=== PATIENT | female | born 1980 | race Caucasian/White ===

== ENCOUNTER 2020-10-31 09:16 | Emergency (ER) | payer OTHER ==
[2020-10-31] MEDS ORDERED: BACTROBAN OINT22 GM EXT (10:37)
[2020-10-31] MEDS ORDERED: DOXYCYCLINE HY100 MG PO (10:37)
[2020-10-31] MEDS ORDERED: TORADOL 10 MG T10 MG PO (10:37)
== END 2020-10-31 10:54 | disposition home or self-care (01) ==
LOC: ER1 09:16
DX: R21 Rash and other nonspecific skin eruption (principal); L29.9 Pruritus, unspecified; R23.4 Changes in skin texture; Z87.891 Personal history of nicotine dependence
CPT/HCPCS: 99282

== ENCOUNTER → 2020-11-28 | Outpatient (CLI) | payer OTHER ==
[~2020-11-28] MED LIST: BACTROBAN OINT22 GM EXT; DOXYCYCLINE HY100 MG PO; TORADOL 10 MG T10 MG PO
== END ==
LOC: KOH-I 11-14 16:30
DX: R10.84 Generalized abdominal pain (principal); K59.00 Constipation, unspecified
CPT/HCPCS: 74176

== ENCOUNTER → 2020-12-08 | Outpatient (CLI) | payer OTHER | LOC: KOH-I 12-01 09:00 | DX: M51.27 Other intervertebral disc displacement, lumbosacral region (principal); M51.36 Other intervertebral disc degeneration, lumbar region | CPT/HCPCS: 72148 ==

== ENCOUNTER → 2021-01-10 | Outpatient (CLI) | payer OTHER | LOC: EMI 09:00 | DX: G35 Multiple sclerosis (principal) | CPT/HCPCS: 70553; A9577 ==

== ENCOUNTER → 2021-02-15 | Outpatient (CLI) | payer OTHER | LOC: KOH-I 02-14 14:30 | DX: M50.30 Other cervical disc degeneration, unspecified cervical region (principal) | CPT/HCPCS: 72141 ==

== ENCOUNTER → 2021-03-08 | Outpatient (CLI) | payer OTHER | LOC: US 09:30 → MAMO 10:00 | DX: T85.9XXA Unspecified complication of internal prosthetic device, implant and graft, initial encounter (principal); M79.642 Pain in left hand; M19.032 Primary osteoarthritis, left wrist | CPT/HCPCS: 73110; 73130; 76641-LT; 76641-RT; 77066; G0279 ==

== ENCOUNTER → 2021-03-12 | Outpatient (CLI) | payer OTHER | LOC: US 13:36 | DX: R10.2 Pelvic and perineal pain (principal) | CPT/HCPCS: 76830 ==

== ENCOUNTER 2021-07-10 13:52 | Emergency (ER) | payer OTHER ==
[2021-07-10] MEDS ORDERED: IBUPROFEN600 MG PO (15:16)
== END 2021-07-10 15:36 | disposition home or self-care (01) ==
LOC: ER1 13:52
DX: S92.354A Nondisplaced fracture of fifth metatarsal bone, right foot, initial encounter for closed fracture (principal); Z88.2 Allergy status to sulfonamides; Z88.1 Allergy status to other antibiotic agents; Z86.16 Personal history of COVID-19; W22.8XXA Striking against or struck by other objects, initial encounter
CPT/HCPCS: 73620; 99283

== ENCOUNTER → 2021-07-20 | Outpatient (CLI) | payer OTHER ==
[~2021-07-20] MED LIST changes: +IBUPROFEN600 MG PO
== END ==
LOC: KOH-I 07-17 13:00
DX: M25.551 Pain in right hip (principal); M25.552 Pain in left hip; M70.62 Trochanteric bursitis, left hip; M70.61 Trochanteric bursitis, right hip
CPT/HCPCS: 73721